=== PATIENT | male | born 1975 | race Caucasian/White ===

== ENCOUNTER → 2019-03-09 11:09 | Outpatient (BNVA) | payer OTHER, SELFPAY | PROVIDERS: Family Provider Family Medicine; PCP Family Medicine; Visit Provider Orthopaedic Surgery | DX: S42.022A Displaced fracture of shaft of left clavicle, initial encounter for closed fracture (principal); X58.XXXA Exposure to other specified factors, initial encounter | CPT/HCPCS: 73000 ==

== ENCOUNTER → 2019-04-06 08:01 | Outpatient (BNVA) | payer OTHER, SELFPAY | PROVIDERS: Family Provider Family Medicine; PCP Family Medicine; Visit Provider Orthopaedic Surgery | DX: S42.022D Displaced fracture of shaft of left clavicle, subsequent encounter for fracture with routine healing (principal); X58.XXXD Exposure to other specified factors, subsequent encounter | CPT/HCPCS: 73000 ==

== ENCOUNTER 2022-02-17 12:15 | Emergency (ER) | payer SELFPAY ==
[2022-02-17 12:21] VITALS: BP 136/72; PULSE 56; RESP 16; TEMP 36.6; O2SAT 97
--- NOTE | 2022-02-17 12:38 | ECG_ITS ---
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 Measurements Intervals [place] Rate: 47 P: 45 TX: 174 QRS: 41 QRSD: 103 T: 65 QT: 414 QTc: 368 Interpretive Statements SINUS BRADYCARDIA INDETERMINATE AXIS INCOMPLETE RIGHT BUNDLE BRANCH BLOCK [90+ ms QRS DURATION, TERMINAL R IN V1/V2, 40+ ms S IN I/aVL/V4/V5/V6] INTERPRETATION BASED ON A DEFAULT AGE OF 40 YEARS No previous ECG available for comparison Electronically Signed On 02-17-2022 20:19:19 INTERACTIVE ART DIRECTOR by Tristan Urbina M.D. [email or web address]
--- NOTE | 2022-02-17 13:39 | PC.NURSE ---
PT SEEN AMB WITH FAMILY OUT OF ER LOBBY.
--- NOTE | 2022-02-17 14:08 | PC.NURSE ---
CALLED TO LOBBY NO ANSWER.
== END 2022-02-17 14:10 | disposition left against medical advice (07) ==
PROVIDERS: Emergency Provider Family Medicine; PCP Family Medicine
DX: Z53.21 Procedure and treatment not carried out due to patient leaving prior to being seen by health care provider (principal)
CPT/HCPCS: 93005

== ENCOUNTER 2023-07-24 08:14 | Oncology outpatient (recurring) (ONCR) | payer OTHER, SELFPAY ==
[2023-07-24 09:46] LABS: Basophils % 0.8 %; Eosinophils # 0.1 10^3/uL (0.0-0.8); Eosinophils % 2.7 %; Lymphocytes # 1.4 10^3/uL (0.8-4.8); Lymphocytes % 28.8 %; Mean Corpuscular HGB Conc 33.6 g/dL (30-55); Mean Corpuscular Hemoglobin 32.4 pg (27-33); Mean Corpuscular Volume 96.6 fl (82-101); Mean Platelet Volume 11.5 fL (7.4-10.4); Monocytes # 0.5 10^3/uL (0.2-0.9); Monocytes % 9.7 %; Neutrophils # 2.73 10^3/uL (1.8-7.7); Neutrophils % 57.8 %; Nucleated Red Blood Cells % 0 %; Platelet Count 189 10^3/cmm (157-399); Red Blood Count 4.66 10^6/uL (3.85-5.65); White Blood Count 4.73 10^3/uL (3.29-11.43)
[2023-07-24 10:03] LABS: Alanine Aminotransferase 28 U/L (0-41); Albumin Level 4.4 g/dL (3.5-5.2); Alkaline Phosphatase 83 U/L (40-130); Anion Gap 15.1 (5-19); Aspartate Amino Transferase 21 U/L (0-40); Blood Urea Nitrogen 16 mg/dL (6-20); Calcium 9.1 mg/dL (8.5-10.5); Carbon Dioxide 25 mmol/L (22-29); Chloride 107 mmol/L (98-107); Free T4 Free Thyroxine 1.14 ng/dL (0.82-1.77); Globulin 2.8 g/dL (1.3-4.6); Glomerular Filtration Rate 90.8 mL/min (90-130); Glucose 104 mg/dL (65-115); Lactate Dehydrogenase 179 U/L (135-225); Osmolality Calculated 297 mOsm/kg (285-295); Potassium 4.1 mmol/L (3.5-5.1); Sodium 143 mmol/L (136-145); Total Bilirubin 0.7 mg/dL (0.15-1.2); Total Protein 7.2 g/dL (6.6-8.7)
[2023-07-24 10:22] LABS: Ferritin 198 ng/mL (30-400); Iron 74 ug/dL (59-158); Percent Saturation 29.1 % (20-50); Total Iron Binding Capacity 254 mcg/dl; Unsaturated Iron Binding 180 ug/dL (112-347)
[2023-07-24 10:23] LABS: INR 0.95 (0.8-1.2); Partial Thromboplastin Time 26.3 SECONDS (23.9-36.7)
[2023-07-24 10:29] LABS: Hepatitis A Antibody IgM Non-Reactive (Nonreactive); Hepatitis B Core AB, Total Non-Reactive (Nonreactive); Hepatitis B Surface AB < 3.5 (11.5-1000); Hepatitis B Surface Antigen Non-Reactive (Nonreactive); Hepatitis C Virus Antibody Non-Reactive (Nonreactive)
[2023-07-24 10:54] LABS: HIV 1 & 2 Antibody Non-Reactive (Non-Reactiv); HIV 1 & 2 Antigen Non-Reactive (Non-Reactiv)
[2023-07-24 12:05] LABS: LAB Peripheral Smear Sent for Review
[2023-07-25 13:00] LABS: Anti-Double Strand DNA AB 1 IU/mL
[2023-07-28 11:45] LABS: Anti-Nuclear Antibody Screen NEGATIVE (NEGATIVE)
[2023-08-01 13:14] LABS: Soluble Transferrin Receptor 1.26 mg/L (0.76-1.76)
--- NOTE | 2023-08-08 07:45 | US_ITS ---
WS: [id number] ULTRASOUND ABDOMEN CLINICAL INFORMATION: thrombocytopenia COMPARISON: None. FINDINGS: Liver Size: Mild hepatomegaly Craniocaudal length: 16.7 cm. Echogenicity: Normal. Surface nodularity: None. Mass (size and location): None. Bile ducts Intrahepatic ducts: Normal. Common bile duct diameter: 0.4 cm. Gallbladder Normal. Gallstones: None. Gallbladder sludge: None. Gallbladder wall thickening: None. Pericholecystic fluid: None. Sonographic Ramos sign: Absent. Pancreas Normal as visualized. Spleen Splenomegaly: None. Craniocaudal length: 10.8 cm. Right kidney: Simple cyst 1.7 x 1.5 x 1.9 cm Hydronephrosis: None. Size: 10.1 cm x 5.1 cm x 4.6 cm Left kidney: Normal. Hydronephrosis: None. Size: 11.4 cm x 4.4 cm x 5.9 cm. Abdominal aorta and IVC Visualized portions are normal. Ascites: None. US/US abdomen complete* [id number] IMPRESSION: 1. Mild hepatomegaly. Normal spleen 2. Normal gallbladder. 3. Normal common bile duct. 4. No hydronephrosis in either kidney. 5. Simple RIGHT renal cyst measuring 1.7 x 1.5 x 1.9 cm
== END 2023-08-17 23:59 | disposition home or self-care (01) ==
LOC: RAD 08-08 07:23 → ONCMED 08-08 07:23
PROVIDERS: PCP Family Medicine; Visit Provider Internal Medicine
DX: D69.6 Thrombocytopenia, unspecified (principal); R16.0 Hepatomegaly, not elsewhere classified; N28.1 Cyst of kidney, acquired
CPT/HCPCS: 36415; 76700; 80053; 82728; 83540; 83550; 83615; 84238; 84439; 84443; 85025; 85610; 85730; 86038; 86225; 86705; 86706; 86709; 86803; 87340; 87806

== ENCOUNTER 2023-08-13 09:49 | Day surgery (SDC) | payer OTHER, SELFPAY ==
[2023-08-13 10:03] VITALS: BP 137/90; PULSE 67; RESP 18; TEMP 36.1; O2SAT 96; BMI 31.1
[2023-08-13] MEDS: sodium chloride 0.9% 1,000 ML 30 ML IV (10:19)
--- NOTE | 2023-08-13 10:38 | ANES.PREANE2 ---
Pre-Anesthetic Assessment Height/Weight: Height 1.83 m Weight 104.326 kg Temp Pulse Resp BP Pulse Ox O2 Del Method 97.0 F L 67 18 137/90 96 Room Air 08/13/23 10:03 08/13/23 10:03 08/13/23 10:03 08/13/23 10:03 08/13/23 10:03 08/13/23 10:03 Preop Diagnosis: GI bleed Operation Date: 08/13/23 11:00 Proposed Procedures p EGD 29414, 16524, G0105, K92.2(Not Applicable) - Wyatt Wallace DO s Colonoscopy(Not Applicable) - Wyatt Wallace DO Was Beta Carlos taken within 24 hours: N/A Was Clonidine taken within 24 hours: N/A Last intake: Intake Last Liquid Date 08/12/23 Last Liquid Time 23:00 Last Solid Date 08/11/23 Last Solid Time 20:00 Social Alcohol Daily THC smoke and gummies Exam alert, oriented x 3, clear to auscultation bilaterally and regular rate & rhythm Airway Submandibular: within normal limits Cervical ROM: within normal limits Mallampati: Class II Dentition: false Comments: Comments: upper plate History/ROS No significant history except as noted and No significant complaints Pulmonary None reported CV/HEM None reported None reported Hepatic enlarged liver GI Gastroesophageal Reflux Disease Metabolic None reported Musc/skel None reported Neuropsych None reported Anesthetic Plan ASA status: 2 Anesthesia: Anesthesia Evaluation and MAC Risk of > 500 ml blood loss (7ml/kg in children): No Medications/Allergies Home Medications Medication Instructions Recorded Confirmed Last Taken Type ibuprofen 200 mg tablet 400 mg PO Q6H PRN Pain 03/09/19 08/13/23 08/11/23 History buspirone 7.5 mg tablet 15 mg PO BEDTIME 06/30/23 08/13/23 08/12/23 History ropinirole 2 mg tablet 2 mg PO BEDTIME 06/30/23 08/13/23 08/12/23 History sertraline 50 mg tablet 50 mg PO BEDTIME 06/30/23 08/13/23 08/12/23 History atorvastatin 20 mg tablet 20 mg PO BEDTIME 07/24/23 08/13/23 08/12/23 History Allergies Allergy/AdvReac Type Severity Reaction Status Date / Time No Known Allergies Allergy Verified 07/24/23 08:23 Current Medications Generic Name Dose Route Start Last Admin Trade Name Markusq PRN Reason Stop Dose Admin Sodium Chloride 1,000 mls @ 30 mls/hr 08/13/23 10:00 08/13/23 10:19 Sodium Chloride 0.9% IV 08/14/23 09:59 30 mls/hr .Q24H DAMON Administration PFSH Anesthesia Medical History Thrombocytopenia Family History Grandfather Diabetes Social History Smoking and tobacco/nicotine status: never used tobacco/nicotine Alcohol intake: never Substance/Drug Use: never Marital status: Current occupational status: employed Data Anesthesia Cardiac Studies: No Data to Display
--- NOTE | 2023-08-13 11:37 | PM.HP ---
Providers/Chief Complaint Primary Care Provider: Francoise Palacios DO Chief Complaint: K92.2 History of Present Illness Benson Caceres is a 47 year old male Review of Systems General: Reports: 10 or more systems reviewed and unremarkable except in HPI and below Medications/Allergies Home Medications Medication Instructions Recorded Confirmed Last Taken Type ibuprofen 200 mg tablet 400 mg PO Q6H PRN Pain 03/09/19 08/13/23 08/11/23 History buspirone 7.5 mg tablet 15 mg PO BEDTIME 06/30/23 08/13/23 08/12/23 History ropinirole 2 mg tablet 2 mg PO BEDTIME 06/30/23 08/13/23 08/12/23 History sertraline 50 mg tablet 50 mg PO BEDTIME 06/30/23 08/13/23 08/12/23 History atorvastatin 20 mg tablet 20 mg PO BEDTIME 07/24/23 08/13/23 08/12/23 History Allergies Allergy/AdvReac Type Severity Reaction Status Date / Time No Known Allergies Allergy Verified 07/24/23 08:23 PFSH Acute PFSH: Medical History Thrombocytopenia Family History Grandfather Diabetes Social History Smoking and tobacco/nicotine status: never used tobacco/nicotine Alcohol intake: never Substance/Drug Use: never Marital status: Current occupational status: employed Vitals/I&O/Wt Last Vital Signs Temp 97.0 F L 08/13/23 10:03 Pulse 67 08/13/23 10:03 Resp 18 08/13/23 10:03 BP 137/90 08/13/23 10:03 Pulse Ox 96 08/13/23 10:03 O2 Del Method Room Air 08/13/23 10:03 Weight last 48 hrs Weight 230 lb A&P Assessment and plan (1) GI bleed: Plan EGD and colonoscopy Attestations Medical Necessity Statement*: Home Coding Level of Care Code Acute Code for Chg Fwd Diagnoses GI bleed K92.2
[2023-08-13] MEDS: EPINEPHrine 1 mg/mL INJ XX (11:46)
[2023-08-13 12:12] VITALS: BP 131/96; PULSE 87; RESP 20; TEMP 36.2; O2SAT 97
[2023-08-13 12:27] VITALS: BP 148/94; PULSE 60; RESP 20; O2SAT 100
--- NOTE | 2023-08-13 12:55 | ANE.PACU2 ---
Inpatient post-anesthesia follow up: Airway intact: Yes Vital signs: Temperature 97.2 F Pulse Rate 60 Respiratory Rate 20 Blood Pressure 148/94 Pulse Oximetry 100 Oxygen Delivery Me thod Room Air Oxygen Flow Rate 3 Fraction of Inspir ed Oxygen Hydration adequate: Yes Nausea and vomiting: No Pain level: 1 Mental status: Baseline
== END 2023-08-13 12:57 | disposition home or self-care (01) ==
PROVIDERS: PCP Family Medicine; Visit Provider Surgery
PROC: 0DJ08ZZ Inspection of Upper Intestinal Tract, Via Natural or Artificial Opening Endoscopic (ICD-10-PCS; CPT 43235; principal; 2023-08-13 11:00)
PROC: 0DJD8ZZ Inspection of Lower Intestinal Tract, Via Natural or Artificial Opening Endoscopic (ICD-10-PCS; CPT 45378; 2023-08-13 11:00)
DX: D12.2 Benign neoplasm of ascending colon (principal); K64.8 Other hemorrhoids; K21.9 Gastro-esophageal reflux disease without esophagitis
CPT/HCPCS: 43239; 45385; 88305; 88342; J0171; J2704; J7030

== ENCOUNTER 2024-02-03 13:30 | Oncology outpatient (recurring) (ONCR) | payer BC, SELFPAY ==
[2024-02-03 14:17] LABS: Basophils # 0.1 10^3/uL (0.0-0.1); Eosinophils # 0.1 10^3/uL (0.0-0.8); Eosinophils % 1.9 %; Hematocrit 45.1 % (37-53); Lymphocytes # 1.5 10^3/uL (0.8-4.8); Lymphocytes % 23.1 %; Mean Corpuscular HGB Conc 33.9 g/dL (30-55); Mean Corpuscular Hemoglobin 32.1 pg (27-33); Mean Corpuscular Volume 94.5 fl (82-101); Mean Platelet Volume 11.1 fL (7.4-10.4); Monocytes # 0.6 10^3/uL (0.2-0.9); Monocytes % 8.9 %; Neutrophils # 4.07 10^3/uL (1.8-7.7); Neutrophils % 64.9 %; Nucleated Red Blood Cells % 0 %; Platelet Count 180 10^3/cmm (157-399); Red Blood Count 4.77 10^6/uL (3.85-5.65); Red Cell Distribution Width 12.5 % (12.1-15.1); White Blood Count 6.27 10^3/uL (3.29-11.43)
[2024-02-03 14:37] LABS: Alanine Aminotransferase 25 U/L (0-41); Albumin Level 4.4 g/dL (3.5-5.2); Alkaline Phosphatase 100 U/L (40-130); Anion Gap 18.9 (5-19); Aspartate Amino Transferase 17 U/L (0-40); Blood Urea Nitrogen 21 mg/dL (6-20); Carbon Dioxide 26 mmol/L (22-29); Chloride 102 mmol/L (98-107); Globulin 2.8 g/dL (1.3-4.6); Glomerular Filtration Rate 90.4 mL/min (90-130); Glucose 105 mg/dL (65-115); Osmolality Calculated 299 mOsm/kg (285-295); Potassium 3.9 mmol/L (3.5-5.1); Sodium 143 mmol/L (136-145); Total Bilirubin 0.8 mg/dL (0.15-1.2); Total Protein 7.2 g/dL (6.6-8.7)
== END 2024-02-17 23:59 | disposition home or self-care (01) ==
PROVIDERS: Nurse Practitioner Family; PCP Family Medicine; Visit Provider Internal Medicine Medical Oncology
DX: D12.6 Benign neoplasm of colon, unspecified (principal)
CPT/HCPCS: 36415; 80053; 85025

== ENCOUNTER 2024-06-15 16:37 | Outpatient (CLI) | payer OTHER, SELFPAY ==
--- NOTE | 2024-06-15 16:50 | XRR_ITS ---
PROCEDURE INFORMATION: Exam: XR Left Knee Exam date and time: 06/15/2024 4:58 PM Age: 48 years old Clinical indication: Left knee pain and weakness after PT heard a pop 3 wks ago while working; Additional info: Pain in left knee TECHNIQUE: Imaging protocol: Radiologic exam of the left knee. Views: 4 or more views. COMPARISON: No relevant prior studies available. FINDINGS: Bones/joints: No acute displaced fracture or dislocation. Moderate narrowing of tricompartmental joint space. Small joint effusion. Soft tissues: Normal. XR/XR knee LT 4V [id number] IMPRESSION: No acute displaced fracture or dislocation.
== END 2024-06-15 16:38 | disposition home or self-care (01) ==
LOC: RAD 16:43
PROVIDERS: PCP Family Medicine; Visit Provider Nurse Practitioner Family
DX: M17.12 Unilateral primary osteoarthritis, left knee (principal); M25.462 Effusion, left knee
CPT/HCPCS: 73564